=== PATIENT | female | born 1960 | race Caucasian/White ===

== ENCOUNTER 2018-07-20 18:49 | Emergency (ER) | payer SELFPAY ==
[2018-07-20] MEDS ORDERED: Sodium Chloride 0.9% 1000 ML 1,000 ML ONE (19:53)
[2018-07-20] MEDS ORDERED: Pepcid 20 MG VIAL IV ONE ×2 (19:53→19:55)
[2018-07-20] MEDS: Sodium Chloride 0.9% 1000 ML 1,000 ML IV STA (19:53)
[2018-07-20] MEDS ORDERED: Zofran 4 MG/2 ML VIAL ONE (19:53)
[2018-07-20] MEDS: Zofran 4 MG/2 ML VIAL IV ONE (19:54)
[2018-07-20] MEDS: Pepcid 20 MG VIAL IV ONE (19:56)
[2018-07-20 20:18] LABS: Basophil (Absolute #) 0 (0-0.4); Eosinophil % 0.2 % (0.00-5.0); Eosinophil (Absolute #) 0.02 (0-0.5); Granulocyte Absolute (ANC) 10.07 (1.4-6.9); Hematocrit 43.7 % (35-47); Hemoglobin 14.6 gm/dl (12.0-16.0); Lymphocyte (Absolute #) 0.58 (1.0-4.6); Lymphocytes % 5.2 % (24.0-44.0); Mean Cell Volume 89.7 fl (78-100); Mean Corpuscular Hgb Concent. 33.4 g/dl (32-36); Mean Platelet Volume 9.8 fl (6-9.5); Monocyte (Absolute #) 0.52 (0.0-1.3); Monocytes % 4.6 % (0.0-12.0); Platelet Count 239 K/mm3 (150-450); Red Blood Count 4.87 M/mm3 (4.1-5.4); Red Cell Distribution Width 12.5 % (11.5-14.0); White Blood Count 11.2 K/mm3 (4.0-10.5)
[2018-07-20 20:22] LABS: Appearance CLEAR (CLEAR); Bilirubin NEGATIVE (NEGATIVE); Blood SMALL Ery/ul (0-5); Glucose NEGATIVE (NEGATIVE); Ketones SMALL (NEGATIVE); Leukocyte Esterase NEGATIVE (NEGATIVE); Mucus SLIGHT /HPF (NEGATIVE); Nitrite NEGATIVE (NEGATIVE); Protein,Urine Dip 30 (Negative); Specific Gravity 1.027 (1.005-1.025); Urobilinogen NEGATIVE mg/dL (0-1)
[2018-07-20 20:30] LABS: INR 1.02 (0.8-3.0); PROTIME 11.9 SECONDS (9.95-12.35)
[2018-07-20] MEDS ORDERED: DEMEROL 50 MG ONE ×2 (20:36→23:07)
[2018-07-20 20:37] LABS: ALBUMIN 4.1 g/dL (3.5-5.0); ALKALINE PHOSPHATASE 99 U/L (38-126); AMYLASE 80 U/L (30-110); ANION GAP 14.3 MEQ/L (5-15); BLOOD UREA NITROGEN 18 mg/dL (7-17); CHLORIDE 102 mmol/L (98-107); Calcium 9.7 mg/dL (8.4-10.2); Carbon Dioxide 26 mmol/L (22-30); Glucose 121 mg/dL (74-106); LIPASE 72 U/L (23-300); Potassium 4.1 mmol/L (3.5-5.1); SGOT/AST 23 U/L (14-36); SGPT/ALT 17 U/L (0-35); SODIUM 138 mmol/L (137-145); Total Protein 7.3 g/dL (6.3-8.2)
[2018-07-20] MEDS: DEMEROL 25MG SYRINGE IV ONE ×2 (20:38→23:11)
[2018-07-20 21:20] VITALS: BP 151/68; PULSE 54; O2SAT 97
--- NOTE | 2018-07-20 21:27 | ERPHSYRPT ---
- History of Present Illness Time Seen by Provider: 07/20/18 19:15 Historian: patient Exam Limitations: no limitations Patient Subjective Stated Complaint: pt c/o abd pain on the lt lower quad, rt lower back pain, has had approx 8 bright red bloody stools today. Triage Nursing Assessment: lungs clear, no distress noted, heart tones regular. Abd soft with active bs x4 quad. Pt c/o 8 bloody stools today. Pt c/o tenderness to LLQ with and without palpation, c/o right lower back pain. no edema. Physician History: 58 y/o white female presents with onset of left lower quadrant abd pain and right flank pain that began this am. pt then began having passage of brbpr several times. pt states approx 8 bloody bms since earlier today. pts llq pain worsening. no prior hx. last colonoscopy many years ago. no vomiting. denies pudz, denies xs asa or nsaid use. denies liver dz and denies bleeding or clotting d/o Timing/Duration: today Activities at Onset: none Quality: cramping, sharpness Abdominal Pain Onset Location: LLQ, flank (right) Pain Radiation: no radiation Severity of Pain-Max: moderate Severity of Pain-Current: moderate Modifying Factors: Improves With: defecating Associated Symptoms: diarrhea, nausea, No fever/chills, No vomiting Previous symptoms: no prior history Allergies/Adverse Reactions: morphine Allergy (Intermediate, Verified 07/20/18 19:29) Vomiting bee pollen Adverse Reaction (Severe, Verified 07/20/18 19:28) Swelling Home Medications: Albuterol Sulfate [Proair Hfa] 8.5 gm IH Q4-6HPRN PRN 07/20/18 [History] Budesonide/Formoterol Fumarate [Symbicort 160-4.5 Mcg Inhaler] 10.2 gm IH BID [History] Doxazosin Mesylate 8 mg PO DAILY 07/20/18 [History] Hx Tetanus, Diphtheria Vaccination/Date Given: No Hx Influenza Vaccination/Date Given: No Hx Pneumococcal Vaccination/Date Given: No Immunizations Up to Date: No - Review of Systems Constitutional: No Symptoms Eyes: No Symptoms Ears, Nose, & Throat: No Symptoms Respiratory: No Symptoms Cardiac: No Symptoms Abdominal/Gastrointestinal: Abdominal Pain (left lower quadrant), Diarrhea, Hematochezia, Melena Genitourinary Symptoms: No Symptoms Musculoskeletal: No Symptoms Skin: No Symptoms Neurological: No Symptoms Psychological: No Symptoms Endocrine: No Symptoms Hematologic/Lymphatic: Blood Clots (passage rectally) Immunological/Allergic: No Symptoms All Other Systems: Reviewed and Negative - Past Medical History Pertinent Past Medical History: Yes Neurological History: No Pertinent History ENT History: No Pertinent History Cardiac History: Hypertension Respiratory History: Asthma Endocrine Medical History: No Pertinent History Musculoskeletal History: Arthritis, Fractures GI Medical History: GERD History: No Pertinent History Psycho-Social History: Anxiety, Depression Female Reproductive Disorders: No Pertinent History Other Medical History: lt wrist fx - Past Surgical History Past Surgical History: Yes Neuro Surgical History: No Pertinent History Cardiac: No Pertinent History Respiratory: No Pertinent History Gastrointestinal: No Pertinent History Genitourinary: No Pertinent History Musculoskeletal: No Pertinent History Female Surgical History: Hysterectomy, Dilation & Curettage - Social History Smoking Status: Never smoker Exposure to second hand smoke: Yes Drug Use: none Patient Lives Alone: No - Female History Hx Now: No - Nursing Vital Signs Nursing Vital Signs: Initial Vital Signs Temperature 98.1 F 07/20/18 19:13 Pulse Rate 66 07/20/18 19:13 Respiratory Rate 16 07/20/18 19:13 Blood Pressure 164/76 07/20/18 19:13 O2 Sat by Pulse Oximetry 99 07/20/18 19:13 Pain Scale Pain Intensity 6 - Physical Exam General Appearance: no apparent distress, alert, anxiety Eye Exam: PERRL/EOMI Ears, Nose, Throat Exam: normal ENT inspection, moist mucous membranes Neck Exam: normal inspection, non-tender, supple, full range of motion Respiratory Exam: normal breath sounds, lungs clear, airway intact, No chest tenderness, No respiratory distress Cardiovascular Exam: regular rate/rhythm, normal heart sounds, normal peripheral pulses Gastrointestinal/Abdomen Exam: soft, normal bowel sounds, tenderness (llq), No guarding, No rebound Pelvic Exam: not done Rectal Exam: not done Back Exam: normal inspection, normal range of motion, No CVA tenderness, No vertebral tenderness Extremity Exam: normal inspection, normal range of motion, pelvis stable Neurologic Exam: alert, oriented x 3, cooperative, orthopedic rn II-XII nml as tested, normal mood/affect, nml cerebellar function, nml station & gait Skin Exam: normal color, warm, dry Lymphatic Exam: No adenopathy SpO2 Interpretation: normal SpO2: 97 O2 Delivery: Room Air - Course Nursing assessment & vital signs reviewed: Yes Ordered Tests: Active Orders 24 hr Category Date Time Status IV Insertion STAT Care 07/20/18 19:44 Active ABDOMEN AND PELVIS W/0 CONTRAS [CT] Stat Exams 07/20/18 19:45 Taken AMYLASE Stat Lab 07/20/18 20:17 Completed CBC W DIFF Stat Lab 07/20/18 20:17 Completed CMP Stat Lab 07/20/18 20:17 Completed CULTURE,URINE Stat Lab 07/20/18 20:17 Received LIPASE Stat Lab 07/20/18 20:17 Completed Lactic Acid Stat Lab 07/20/18 20:31 Completed PROTIME WITH INR Stat Lab 07/20/18 20:17 Completed UA W/RFX UR CULTURE Stat Lab 07/20/18 20:17 Completed Medication Summary Discontinued Medications Generic Name Dose Route Start Last Admin Trade Name Freq PRN Reason Stop Dose Admin Famotidine 40 mg 07/20/18 19:44 07/20/18 19:56 Pepcid 20 Mg Vial IV 07/20/18 19:45 40 mg STAT ONE Administration Famotidine Confirm 07/20/18 19:53 Pepcid 20 Mg Vial Administered 07/20/18 19:54 Dose 20 mg IV .STK-MED ONE Famotidine Confirm 07/20/18 19:55 Pepcid 20 Mg Vial Administered 07/20/18 19:56 Dose 20 mg IV .STK-MED ONE Sodium Chloride 1,000 mls @ 999 mls/hr 07/20/18 19:44 07/20/18 19:53 Sodium Chloride 0.9% 1000 Ml IV 07/20/18 20:44 999 mls/hr .Q1H1M STA Administration Sodium Chloride Confirm 07/20/18 19:53 Sodium Chloride 0.9% 1000 Ml Administered 07/20/18 19:54 Dose 1,000 mls @ ud .ROUTE .STK-MED ONE Meperidine HCl 25 mg 07/20/18 20:29 07/20/18 20:38 Demerol 25mg Syringe IV 07/20/18 20:30 25 mg STAT ONE Administration Meperidine HCl Confirm 07/20/18 20:36 Demerol 50 Mg Administered 07/20/18 20:37 Dose 50 mg .ROUTE .STK-MED ONE Ondansetron HCl 4 mg 07/20/18 19:44 07/20/18 19:54 Zofran 4 Mg/2 Ml Vial IV 07/20/18 19:45 4 mg STAT ONE Administration Ondansetron HCl Confirm 07/20/18 19:53 Zofran 4 Mg/2 Ml Vial Administered 07/20/18 19:54 Dose 4 mg .ROUTE .STK-MED ONE Lab/Rad Data: Laboratory Result Diagrams 07/20/18 20:17 07/20/18 20:17 Laboratory Results 07/20/18 07/20/18 07/20/18 Range/Units 20:31 20:17 20:17 WBC (4.0-10.5) K/mm3 RBC (4.1-5.4) M/mm3 Hgb (12.0-16.0) gm/dl Hct (35-47) % MCV (78-100) fl MCH (26-32) pg MCHC (32-36) g/dl RDW (11.5-14.0) % Plt Count (150-450) K/mm3 MPV (6-9.5) fl Gran % (36.0-66.0) % Eos # (Auto) (0-0.5) Absolute Lymphs (auto) (1.0-4.6) Absolute Monos (auto) (0.0-1.3) Lymphocytes % (24.0-44.0) % Monocytes % (0.0-12.0) % Eosinophils % (0.00-5.0) % Basophils % (0.0-0.4) % Absolute Granulocytes (1.4-6.9) Basophils # (0-0.4) PT 11.9 (9.95-12.35) SECONDS INR 1.02 (0.8-3.0) Sodium (137-145) mmol/L Potassium (3.5-5.1) mmol/L Chloride (98-107) mmol/L Carbon Dioxide (22-30) mmol/L Anion Gap (5-15) MEQ/L BUN (7-17) mg/dL Creatinine (0.52-1.04) mg/dL Estimated GFR ML/MIN Glucose (74-106) mg/dL Lactic Acid 1.3 (0.4-2.0) Calcium (8.4-10.2) mg/dL Total Bilirubin (0.2-1.3) mg/dL AST (14-36) U/L ALT (0-35) U/L Alkaline Phosphatase (38-126) U/L Serum Total Protein (6.3-8.2) g/dL Albumin (3.5-5.0) g/dL Amylase (30-110) U/L Lipase (23-300) U/L Urine Color ZOEY (YELLOW) Urine Appearance CLEAR (CLEAR) Urine pH 5.0 (5-6) Ur Specific [place] 1.027 (1.005-1.025) Urine Protein 30 (Negative) Urine Ketones SMALL (NEGATIVE) Urine Blood SMALL (0-5) Ramiro/ul Urine Nitrite NEGATIVE (NEGATIVE) Urine Bilirubin NEGATIVE (NEGATIVE) Urine Urobilinogen NEGATIVE (0-1) mg/dL Ur Leukocyte Esterase NEGATIVE (NEGATIVE) Urine WBC (Auto) NONE (0-5) /HPF Urine RBC (Auto) 11-15 (0-2) /HPF U Epithel Cells (Auto) NONE (FEW) /HPF Urine Bacteria (Auto) NONE (NEGATIVE) /HPF Urine Mucus (Auto) SLIGHT (NEGATIVE) /HPF Urine Culture Reflexed YES (NO) Urine Glucose NEGATIVE (NEGATIVE) mg/dL Slides for Path Review 07/20/18 07/20/18 Range/Units 20:17 20:17 WBC 11.2 H (4.0-10.5) K/mm3 RBC 4.87 (4.1-5.4) M/mm3 Hgb 14.6 (12.0-16.0) gm/dl Hct 43.7 (35-47) % MCV 89.7 (78-100) fl MCH 30.0 (26-32) pg MCHC 33.4 (32-36) g/dl RDW 12.5 (11.5-14.0) % Plt Count 239 (150-450) K/mm3 MPV 9.8 H (6-9.5) fl Gran % 90.0 H (36.0-66.0) % Eos # (Auto) 0.02 (0-0.5) Absolute Lymphs (auto) 0.58 L (1.0-4.6) Absolute Monos (auto) 0.52 (0.0-1.3) Lymphocytes % 5.2 L (24.0-44.0) % Monocytes % 4.6 (0.0-12.0) % Eosinophils % 0.2 (0.00-5.0) % Basophils % 0.0 (0.0-0.4) % Absolute Granulocytes 10.07 H (1.4-6.9) Basophils # 0 (0-0.4) PT (9.95-12.35) SECONDS INR (0.8-3.0) Sodium 138 (137-145) mmol/L Potassium 4.1 (3.5-5.1) mmol/L Chloride 102 (98-107) mmol/L Carbon Dioxide 26 (22-30) mmol/L Anion Gap 14.3 (5-15) MEQ/L BUN 18 H (7-17) mg/dL Creatinine 0.70 (0.52-1.04) mg/dL Estimated GFR > 60.0 ML/MIN Glucose 121 H (74-106) mg/dL Lactic Acid (0.4-2.0) Calcium 9.7 (8.4-10.2) mg/dL Total Bilirubin 0.80 (0.2-1.3) mg/dL AST 23 (14-36) U/L ALT 17 (0-35) U/L Alkaline Phosphatase 99 (38-126) U/L Serum Total Protein 7.3 (6.3-8.2) g/dL Albumin 4.1 (3.5-5.0) g/dL Amylase 80 (30-110) U/L Lipase 72 (23-300) U/L Urine Color (YELLOW) Urine Appearance (CLEAR) Urine pH (5-6) Ur Specific [place] (1.005-1.025) Urine Protein (Negative) Urine Ketones (NEGATIVE) Urine Blood (0-5) Ramiro/ul Urine Nitrite (NEGATIVE) Urine Bilirubin (NEGATIVE) Urine Urobilinogen (0-1) mg/dL Ur Leukocyte Esterase (NEGATIVE) Urine WBC (Auto) (0-5) /HPF Urine RBC (Auto) (0-2) /HPF U Epithel Cells (Auto) (FEW) /HPF Urine Bacteria (Auto) (NEGATIVE) /HPF Urine Mucus (Auto) (NEGATIVE) /HPF Urine Culture Reflexed (NO) Urine Glucose (NEGATIVE) mg/dL Slides for Path Review YES - Progress Progress: improved, pain not gone completely, re-examined Progress Note: 07/20/18 22:44 ct abd/pelvis-mild thickening and inflammed wall transverse, desc and sigmoid colon. no other acute findings. Counseled pt/family regarding: lab results, diagnosis, need for follow-up, rad results - Departure Departure Disposition: Home Clinical Impression: Colitis Condition: Stable Critical Care Time: No Referrals: YAMILET SAUL JR [Primary Care Provider] - Additional Instructions: drink plenty of clear liquids. follow up with primary doctor for persistent symptoms Prescriptions: Hydrocodone/APAP 5/325 [[place] 5/325 mg] 1 each PO Q8H PRN PRN #10 tablet MDD 3 PRN Reason: Pain Ciprofloxacin [Cipro 500 MG] 500 mg PO BID #14 tablet Metronidazole 500 mg [Flagyl 500 MG] 500 mg PO TID #21 tablet
[2018-07-20 21:50] LABS: Slide Review 1 YES
[2018-07-20] MEDS ORDERED: Cipro 500 MG ONE (23:07)
[2018-07-20] MEDS: Flagyl 500 MG PO ONE (23:08)
[2018-07-20] MEDS ORDERED: Flagyl 500 MG ONE (23:08)
[2018-07-20] MEDS: Cipro 500 MG PO ONE (23:10)
--- NOTE | 2018-07-21 08:56 | XRAY ---
Indication: Left lower quadrant pain. Rectal bleeding. Multiple contiguous axial images obtained through the abdomen and pelvis without contrast as ordered. Comparison: None Lung bases demonstrates minimal fibrosis/scarring. No infiltrate or effusion. Heart is not enlarged. Small hiatal hernia. Noncontrasted stomach and bowel loops appear nonobstructed. Normal appendix. Distal transverse colon, descending colon, and proximal sigmoid colon demonstrates mild wall thickening with minimal stranding favoring colitis. No free fluid/air. Mild scattered colonic diverticulosis greatest in the sigmoid. Previous hysterectomy. Remaining liver, gallbladder, pancreas, spleen, adrenal glands, kidneys, ureters, bladder, and aorta appear unremarkable for noncontrast exam. Osseous structures intact with minimal degenerative changes throughout the spine. No ventral or inguinal hernias. Impression: 1. Left hemicolon/sigmoid colitis. No complications. 2. Scattered colonic diverticulosis and small hiatal hernia. 3. Remaining CT abdomen/pelvis without contrast exam is negative. CT DI 12.91
== END 2018-07-20 23:24 | disposition home or self-care (01) ==
LOC: ED 18:49
DX: K52.9 Noninfective gastroenteritis and colitis, unspecified (principal)
CPT/HCPCS: 36000; 36415; 74176; 80053; 81001; 82150; 83605; 83690; 85025; 85610; 87086; 96360; 96374; 96375; 96376; 99284; J2175; J2405; A9270-GY

== ENCOUNTER 2022-09-18 10:57 | Emergency (ER) | payer MEDICAID ==
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
[2022-09-18] MEDS ORDERED: ENALAPRILAT 2.5 MG INJECTION IV ONE (11:48)
[2022-09-18] MEDS: ENALAPRILAT 2.5 MG INJECTION IV ONE (11:51)
[2022-09-18 11:56] LABS: Absolute Neutrophil Ct (ANC) 5.01 x10^3/uL (1.4-6.9); BASOPHIL % 0.3 % (0.0-0.4); Basophil (Absolute #) 0.02 x10^3/uL (0-0.4); Eosinophil % 1.9 % (0.00-5.0); Eosinophil (Absolute #) 0.12 x10^3/uL (0-0.5); Hematocrit 40.2 % (35-47); Hemoglobin 13.1 g/dL (12.0-16.0); IMMATURE GRAN # 0.01 x10^3u/L (0.00-0.03); IMMATURE GRAN % 0.2 % (0.00-0.4); Lymphocyte (Absolute #) 0.83 x10^3/uL (1.0-4.6); Lymphocytes % 13.1 % (24.0-44.0); Mean Cell Volume 91.4 fL (78-100); Mean Corpuscular Hemoglobin 29.8 pg (26-32); Mean Corpuscular Hgb Concent. 32.6 g/dL (32-36); Mean Platelet Volume 9.1 fL (7.5-11.0); Monocyte (Absolute #) 0.33 x10^3/uL (0.0-1.3); Monocytes % 5.2 % (0.0-12.0); Neutrophil % 79.3 % (36.0-66.0); Platelet Count 221 x10^3/uL (150-450); Red Cell Distribution Width 12.2 % (11.5-14.0); White Blood Count 6.3 x10^3/uL (4.0-10.5)
[2022-09-18 12:09] LABS: ALKALINE PHOSPHATASE 70 U/L (38-126); ANION GAP 9.3 MEQ/L (5-15); BLOOD UREA NITROGEN 15 mg/dL (7-17); CHLORIDE 106 mmol/L (98-107); Calcium 8.8 mg/dL (8.4-10.2); Carbon Dioxide 28 mmol/L (22-30); Creatinine 1 0.71 mg/dL (0.52-1.04); EST GLOMERULAR FILTRATION RATE > 60.0 ML/MIN; Glucose 114 mg/dL (74-106); Potassium 3.5 mmol/L (3.5-5.1); SGOT/AST 27 U/L (14-36); SGPT/ALT 21 U/L (0-35); SODIUM 140 mmol/L (137-145); Total Protein 7.3 g/dL (6.3-8.2)
--- NOTE | 2022-09-18 12:12 | XRAY ---
Indication: Altered mental status. High blood pressure. Multiple contiguous axial images obtained through the head without contrast. Comparison: None Normal appearing brain parenchyma, ventricles, and bony calvarium for patient's age. Visualized paranasal sinuses and mastoid air cells are clear. Impression: Normal CT head without contrast exam.
[2022-09-18 12:30] LABS: ADD URINE CULTURE? YES (NO); Appearance Cloudy (Clear); Bacteria Many /HPF (None Seen); Bilirubin Negative (Negative); Blood Small (Negative); Epithelial Cells None Seen /HPF (None Seen); Glucose, Urine Negative (Negative); Ketones Negative (Negative); Leukocyte Esterase Large (Negative); Nitrite Positive (Negative); Protein,Urine Dip 30 (Negative); Specific Gravity 1.015 (1.005-1.030); Urobilinogen 0.2 mg/dL (0.2); WBC >100 /HPF (0-5)
[2022-09-18] MEDS ORDERED: CLONIDINE 0.1 MG TABLET ONE ×2 (12:43→13:08)
[2022-09-18] MEDS: CLONIDINE 0.1 MG TABLET PO ONE (12:44)
[2022-09-18] MEDS ORDERED: ROCEPHIN 1 Gm-D5w 50 ml Bag** 1 G/50 ML IVPB IV ONE (12:58)
[2022-09-18] MEDS: ROCEPHIN 1 Gm-D5w 50 ml Bag** 1 G/50 ML IVPB IV STA (12:59)
[2022-09-18 13:08] VITALS: BP 175/90; PULSE 70; O2SAT 99
[2022-09-18] MEDS: CLONIDINE 0.1 MG TABLET PO SCH (13:09)
== END 2022-09-18 13:23 | disposition home or self-care (01) ==
LOC: ED 10:57
DX: I10 Essential (primary) hypertension (principal); N39.0 Urinary tract infection, site not specified; R51.9 Headache, unspecified; Z79.899 Other long term (current) drug therapy
CPT/HCPCS: 36000; 36415; 70450; 80053; 81001; 84484; 85025; 87077; 87086; 87186; 93005; 93041; 94760; 96374; 99284; J0696; A9270-GY